=== PATIENT | female | born 1955 | race Hispanic/Latino ===

== ENCOUNTER → 2019-11-28 | Outpatient (CLI) | payer OTHER, MEDICARE | END | disposition home or self-care (01) | LOC: SHCH 11:05 | PROVIDERS: ATTEND Internal Medicine Cardiovascular Disease | DX: M47.816 Spondylosis without myelopathy or radiculopathy, lumbar region (principal); M48.061 Spinal stenosis, lumbar region without neurogenic claudication; I48.0 Paroxysmal atrial fibrillation | CPT/HCPCS: 72100; 93306 ==

== ENCOUNTER → 2020-02-26 | Outpatient (CLI) | payer OTHER, MEDICARE | END | disposition home or self-care (01) | LOC: SHCH 09:36 | PROVIDERS: ATTEND Internal Medicine Cardiovascular Disease | DX: I48.19 Other persistent atrial fibrillation (principal) | CPT/HCPCS: 93922 ==

== ENCOUNTER → 2020-11-09 | Outpatient (CLI) | payer OTHER | END | disposition home or self-care (01) | LOC: RAH 13:27 | PROVIDERS: ATTEND Internal Medicine Cardiovascular Disease | DX: Z13.6 Encounter for screening for cardiovascular disorders (principal) | CPT/HCPCS: 75571 ==

== ENCOUNTER → 2020-11-30 | Outpatient (CLI) | payer MEDICARE ==
[~2020-11-30] VITALS: Ht 165.1 cm; Wt 103.9 kg
[~2020-11-30] MED LIST: REGADENOSON 0.4 MG/5 ML PF SYG IVP SCH
== END | disposition home or self-care (01) ==
LOC: SHCH 08:15
PROVIDERS: ATTEND Internal Medicine Cardiovascular Disease
DX: I25.10 Atherosclerotic heart disease of native coronary artery without angina pectoris (principal)
CPT/HCPCS: 78452; 93017; 96374; A9500 ×2; J2785

== ENCOUNTER → 2021-03-10 | Outpatient (CLI) | payer OTHER, MEDICARE | END | disposition home or self-care (01) | LOC: OIH 09:47 | PROVIDERS: ATTEND Internal Medicine | DX: M47.27 Other spondylosis with radiculopathy, lumbosacral region (principal); M47.816 Spondylosis without myelopathy or radiculopathy, lumbar region; M47.814 Spondylosis without myelopathy or radiculopathy, thoracic region; I51.7 Cardiomegaly | CPT/HCPCS: 72070; 72082; 72100 ==

== ENCOUNTER → 2021-05-30 | Outpatient (CLI) | payer OTHER, MEDICARE | END | disposition home or self-care (01) | LOC: OIH 10:01 | PROVIDERS: ATTEND Internal Medicine | DX: M54.9 Dorsalgia, unspecified (principal) | CPT/HCPCS: 72070 ==

== ENCOUNTER → 2021-05-31 | Outpatient (CLI) | payer OTHER, MEDICARE | END | disposition home or self-care (01) | LOC: RAH 08:59 | PROVIDERS: ATTEND Internal Medicine | DX: K80.20 Calculus of gallbladder without cholecystitis without obstruction (principal); K76.0 Fatty (change of) liver, not elsewhere classified; R16.0 Hepatomegaly, not elsewhere classified | CPT/HCPCS: 76700 ==

== ENCOUNTER → 2023-03-14 | Outpatient (CLI) | payer OTHER, MEDICARE ==
[~2023-03-14] MED LIST changes: +ALBUTEROL 0.083% 2.5 MG/3 ML INH IH ONE; -REGADENOSON 0.4 MG/5 ML PF SYG IVP SCH
== END | disposition home or self-care (01) ==
LOC: RESP 12:44
PROVIDERS: ATTEND Internal Medicine Cardiovascular Disease
DX: R06.02 Shortness of breath (principal)
CPT/HCPCS: 94060; 94727; 94729

== ENCOUNTER → 2023-03-28 | Outpatient (CLI) | payer OTHER, MEDICARE | END | disposition home or self-care (01) | LOC: RAH 11:02 | PROVIDERS: ATTEND Internal Medicine | DX: Q25.46 Tortuous aortic arch (principal); I48.91 Unspecified atrial fibrillation | CPT/HCPCS: 71046 ==

== ENCOUNTER 2023-08-15 08:01 | Day surgery (SDC) | payer OTHER, MEDICARE ==
[2023-08-09 14:56] LABS: BASOPHILS # (AUTO) 0.02 K/uL (0.00-0.20); BASOPHILS % (AUTO) 0.4 % (0.0-5.0); EOSINOPHILS # (AUTO) 0.08 K/uL (0.00-0.70); EOSINOPHILS % (AUTO) 1.7 % (0.0-8.0); HEMATOCRIT 39.8 % (36-48); IMMATURE GRANULOCYTE ABSOLUTE 0.01 K/uL (0-1); LYMPHOCYTES # (AUTO) 2.2 K/uL (1.0-4.8); LYMPHOCYTES % (AUTO) 47.2 % (21.0-51.0); MEAN CORPUSCULAR HEMOGLOBIN 32.6 pg (27.0-33.0); MEAN CORPUSCULAR HGB CONC 33.7 g/dL (32.0-36.0); MEAN CORPUSCULAR VOLUME 96.8 fL (79-99); MONOCYTES # (AUTO) 0.5 K/uL (0.1-1.0); MONOCYTES % (AUTO) 10.9 % (3.0-13.0); NEUTROPHILS # (AUTO) 1.9 K/uL (1.8-7.7); NEUTROPHILS % (AUTO) 39.6 % (40.0-77.0); PLATELET COUNT (AUTO) 183 K/uL (130-400); RED BLOOD CELL COUNT(AUTO) 4.11 MIL/uL (4.00-5.50); RED CELL DISTRIBUTION WIDTH 13.2 % (11.0-15.5); WHITE BLOOD COUNT (AUTO) 4.8 K/uL (4.8-10.8)
[2023-08-09 15:11] LABS: INR 1.34 (0.85-1.15); PROTHROMBIN TIME 15.3 SEC (9.6-11.6)
[2023-08-09 15:13] LABS: PARTIAL THROMBOPLASTIN TIME 39.3 SEC (26.3-35.5)
[2023-08-09 15:25] LABS: CREATININE 0.8 mg/dL (0.5-1.5); POTASSIUM 4.5 mmol/L (3.5-5.1)
[2023-08-14 13:04] VITALS: BP 143/86; PULSE 69; RESP 14
[~2023-08-15] VITALS: Ht 160 cm; Wt 109.3 kg
[2023-08-15] VITALS (10 sets, daily range): BP systolic 107–139; BP diastolic 66–78; PULSE 65–74; RESP 12–19
[~2023-08-15 08:01] MED LIST changes: -ALBUTEROL 0.083% 2.5 MG/3 ML INH IH ONE; +AMIO200T68 PO; +ATOR20TA65 PO; +CETI10TA57 PO; +METO-391 PO; +RIVA20TA PO; +TRAM50TA4 PO
[2023-08-15] MEDS ORDERED: 0.9%NACL 1000ML 1,000 ML IV ONE ×2 (09:06→09:12)
[2023-08-15] MEDS ORDERED: BACL10TA PO (09:15)
[2023-08-15] MEDS ORDERED: HYDR-3421 PO (09:20)
[2023-08-15] MEDS ORDERED: LIDOCAINE PF 100MG/5ML (2%) SYRINGE 5ML ONE (10:48)
[2023-08-15] MEDS ORDERED: PROPOFOL 10 MG/ML 20ML VIAL IV ONE (10:48)
== END 2023-08-15 12:35 | disposition home or self-care (01) ==
LOC: DAH 08:01
PROVIDERS: ATTEND Internal Medicine Cardiovascular Disease
DX: I48.19 Other persistent atrial fibrillation (principal); I10 Essential (primary) hypertension; Z82.49 Family history of ischemic heart disease and other diseases of the circulatory system; Z79.899 Other long term (current) drug therapy
CPT/HCPCS: 80048; 85025; 85610; 85730; 36415; 92960; 93005; J7030 ×2; J2001; J2704; A4620; A4615; A4215; A4223 ×3; A7002; A4222; A4221; A4663; A4216; A4606; J3490

== ENCOUNTER → 2023-10-19 | Outpatient (CLI) | payer OTHER, MEDICARE ==
[~2023-10-19] MED LIST changes: -AMIO200T68 PO; +BACL10TA PO; +HYDR-3421 PO; -METO-391 PO
== END | disposition home or self-care (01) ==
LOC: SHCH 09:54
PROVIDERS: ATTEND Internal Medicine Cardiovascular Disease
DX: I34.0 Nonrheumatic mitral (valve) insufficiency (principal); I48.20 Chronic atrial fibrillation, unspecified
CPT/HCPCS: 93306

== ENCOUNTER → 2024-08-04 | Outpatient (CLI) | payer OTHER, MEDICARE | END | disposition home or self-care (01) | LOC: LAB 10:14 | PROVIDERS: ATTEND Internal Medicine Cardiovascular Disease | DX: Z79.01 Long term (current) use of anticoagulants (principal) | CPT/HCPCS: 36415; 83880 ==

== ENCOUNTER → 2024-08-15 | Outpatient (CLI) | payer OTHER, MEDICARE | END | disposition home or self-care (01) | LOC: LAB 09:18 | PROVIDERS: ATTEND Internal Medicine Cardiovascular Disease | DX: Z79.01 Long term (current) use of anticoagulants (principal) | CPT/HCPCS: 36415; 83880 ==

== ENCOUNTER → 2024-08-29 | Outpatient (CLI) | payer OTHER, MEDICARE ==
--- NOTE | 2024-08-29 12:15 | HMCIMG ---
THORACIC SPINE 2VWS HISTORY: Back pain COMPARISON: None FINDINGS: 4 images of thoracic spine were obtained. There are degenerative changes with spondylosis. There is straightening of normal lordotic curvature which may be related to muscle spasm or positioning. No loss of vertebral height is seen. No fracture or dislocation is seen. Degenerative changes are seen. IMPRESSION: 1. No fracture is seen. DJD.
--- NOTE | 2024-08-29 12:16 | HMCIMG ---
CHEST 2VWS HISTORY: Shortness of breath COMPARISON: 03/28/2023 FINDINGS: Frontal and lateral projections of the chest were obtained. There are prominent interstitial markings with possible superimposed infiltrates. The heart is borderline enlarged. No evidence of aortic calcification is seen. Degenerative changes are seen of the thoracolumbar spine. IMPRESSION: 1. There are prominent interstitial markings.
== END | disposition home or self-care (01) ==
LOC: RAH 10:47
PROVIDERS: ATTEND Internal Medicine
DX: J84.89 Other specified interstitial pulmonary diseases (principal); M47.815 Spondylosis without myelopathy or radiculopathy, thoracolumbar region; R06.02 Shortness of breath
CPT/HCPCS: 71046; 72070

== ENCOUNTER → 2025-01-30 | Outpatient (CLI) | payer OTHER, MEDICARE ==
--- NOTE | 2025-01-30 11:31 | HMCIMG ---
Exam Type: HIP UNILAT 2-3VW RIGHT Clinical Information: DEGENERATIVE JOINT DISEASE OF HIP; HIP PAIN,RIGHT Comparison: None Findings: There is narrowing of the acetabular joint space and there is superior marginal osteophytosis and subchondral sclerosis consistent with degenerative changes. Bone density is preserved. No acute fractures or dislocations are seen. No blastic or lytic lesions or bones are identified. The soft tissues are unremarkable. Impression: Degenerative changes as noted. No acute pathology.
--- NOTE | 2025-01-30 11:31 | HMCIMG ---
Exam Type: LUMBAR SPINE 2-3VWS Clinical Information: LUMBAR RADICULOPATHY Comparison: None Findings: Exam of the lumbosacral spine demonstrates no evidence of fracture or subluxation. There are moderate spondylitic changes. The facet joints show moderate degenerative changes. The alignment of the spine is normal. The disc spaces are intact. There is osteopenia. Impression: Spondylitic changes and degenerative changes of the apophyseal joints as noted.
== END | disposition home or self-care (01) ==
LOC: RAH 10:16
PROVIDERS: ATTEND Internal Medicine
DX: M16.11 Unilateral primary osteoarthritis, right hip (principal); M25.551 Pain in right hip; M47.26 Other spondylosis with radiculopathy, lumbar region
CPT/HCPCS: 72100; 73502

== ENCOUNTER → 2025-06-10 | Outpatient (CLI) | payer OTHER, MEDICAID ==
--- NOTE | 2025-06-11 08:56 | HMCIMG ---
EXAM: CR Chest, 2 views. CLINICAL HISTORY: Cough. COMPARISON: CR Chest. 08/29/2024. FINDINGS: The lungs show no infiltration or other acute findings. No pleural effusion or pneumothorax. Stable mild cardiomegaly. No acute osseous abnormality. Osteopenia. Thoracic spondylosis. IMPRESSION: 1. No acute lung pathology. Stable mild cardiomegaly. /[place]
== END | disposition home or self-care (01) ==
LOC: LAB 09:45
PROVIDERS: ATTEND Internal Medicine
DX: I51.7 Cardiomegaly (principal); R05.3 Chronic cough; M85.88 Other specified disorders of bone density and structure, other site; M47.814 Spondylosis without myelopathy or radiculopathy, thoracic region
CPT/HCPCS: 71046